=== PATIENT | female | born 1950 ===

== ENCOUNTER → 2018-09-08 22:29 | Outpatient (REF) | payer MEDICARE, OTHER, SELFPAY ==
[2018-09-09 01:24] LABS: Uric Acid 3.5 mg/dL (2.5-6.2)
== END ==
LOC: LAB 22:29
PROVIDERS: Visit Provider Naturopath
DX: M25.50 Pain in unspecified joint (principal)
CPT/HCPCS: 84550

== ENCOUNTER → 2018-10-18 21:43 | Outpatient (REF) | payer MEDICARE, OTHER, SELFPAY ==
[2018-10-18 23:20] LABS: Ferritin 19.4 ng/mL (11.1-264)
[2018-10-21 20:00] LABS: Progesterone 3.7 ng/mL
[2018-10-21 22:01] LABS: Estrogen 118.4 pg/mL
[2018-10-26 14:01] LABS: Testosterone Free 6.6; Testosterone Total 107
== END ==
LOC: LAB 21:43
PROVIDERS: Visit Provider Naturopath
DX: E28.1 Androgen excess (principal); Z79.890 Hormone replacement therapy; N95.1 Menopausal and female climacteric states; L65.8 Other specified nonscarring hair loss; F43.23 Adjustment disorder with mixed anxiety and depressed mood
CPT/HCPCS: 36415; 82672; 82728; 84144; 84402; 84403